=== PATIENT | female | born 1995 | race Caucasian/White ===

== ENCOUNTER 2017-04-15 10:56 | Emergency (ER) | payer BC ==
[~2017-04-15] VITALS: Ht 165.1 cm; Wt 85.2 kg
[2017-04-15 10:59] VITALS: Ht 165.1 cm; Wt 85.2 kg
[2017-04-15] MEDS ORDERED: ONDANSETRON INJ 2 MG/ML 2 ML VIAL IV STA (11:11)
[2017-04-15] MEDS ORDERED: KETOROLAC TROMETHAMINE 30 MG/ML VIAL IV STA (11:11)
[2017-04-15] MEDS ORDERED: OPTIRAY 320 IV PRN (11:30)
--- NOTE | 2017-04-15 11:38 | DIAGNOSTIC IMAGING REPORT ---
SINGLE VIEW CHEST CLINICAL HISTORY: Atypical chest pain. FINDINGS: An AP, portable, upright chest radiograph is compared to study dated 04/05/2016. The cardiomediastinal silhouette is unremarkable. A mediastinal clip is noted. Small calcified granulomas are suggested. The lungs and pleural spaces are otherwise clear. No pneumothorax is seen. The bony thorax is grossly intact. IMPRESSION: No active disease in the chest. Electronically signed by: Calixto Hanna M.D. 04/15/2017 11:36 AM Dictated Date/Time: 04/15/2017 11:36 AM
[2017-04-15 12:20] LABS: BASO % 0.9 %; COMPLETE YES; EOS % 5.2 %; HEMATOCRIT 39.8 % (37-47); IG% 0.2 %; LYMPH % 26.5 %; LYMPH ABS # 2.79 K/uL (1.2-3.4); MEAN CORPUSCULAR HEMOGLOBIN 31.1 pg (25-34); MEAN CORPUSCULAR HGB CONC 33.4 g/dl (32-36); MEAN PLATELET VOLUME 9.4 fL (7.4-10.4); MONO % 5.2 %; PLATELET COUNT 300 K/uL (130-400); RED BLOOD COUNT 4.28 M/uL (4.2-5.4); WHITE BLOOD COUNT 10.54 K/uL (4.8-10.8)
[2017-04-15 12:37] LABS: URINE APPEARANCE TURBID (CLEAR); URINE BILIRUBIN NEG (NEG); URINE COLOR YELLOW; URINE EPITHELIAL CELL AUTO >30 /lpf (0-5); URINE NITRITE NEG (NEG); URINE PH 8.5 (4.5-7.5); URINE SPECIFIC GRAVITY 1.017 (1.000-1.030); UROBILINOGEN NEG (NEG); ZZUR CULT IF INDIC CLEAN CATCH NO
[2017-04-15 12:40] LABS: MANUAL MICROSCOPIC REQUIRED? NO; REVIEW REQ? NO
[2017-04-15 12:42] LABS: ALT/SGPT 15 U/L (12-78); BLOOD UREA NITROGEN 9 mg/dl (7-18); BUN/CREATININE RATIO 13.6 (10-20); CARBON DIOXIDE 27 mmol/L (21-32); CHLORIDE 106 mmol/L (98-107); CREATININE 0.63 mg/dl (0.60-1.20); GLUCOSE 87 mg/dl (70-99); POTASSIUM 3.8 mmol/L (3.5-5.1); SODIUM 139 mmol/L (136-145)
[2017-04-15 12:47] LABS: ALKALINE PHOSPHATASE 82 U/L (45-117); AST/SGOT 8 U/L (15-37)
--- NOTE | 2017-04-15 13:43 | DIAGNOSTIC IMAGING REPORT ---
ABDOMEN AND PELVIS CT WITH IV CONTRAST CT DOSE: 524.46 mGy.cm HISTORY: Acute generalized upper abdominal pain diffuse upper abd pain TECHNIQUE: Multiaxial CT images of the abdomen and pelvis were performed following the use of intravenous contrast. A dose lowering technique was utilized adhering to the principles of ALARA. COMPARISON STUDY: CT abdomen and pelvis 01/29/2011. FINDINGS: The lung bases are generally clear. There is no pneumoperitoneum or pneumatosis identified. The imaged inferior cardiac chambers are unremarkable. The liver, gallbladder, spleen, pancreas and adrenal glands are within normal limits. There is an intermediate attenuating lesion adjacent to the lesser curvature of the stomach anterior to the pancreas in the region of the gastric hepatic ligament measuring 3.5 x 1.6 x 4.6 cm in transverse, AP and coronal caudal dimensions respectively nicely seen on image 98 series 3 which appears new from prior study. No associated inflammatory changes identified. No pancreatic ductal dilation. Kidneys, ureters and urinary bladder are within normal limits. Uterus and adnexa are also unremarkable. The abdominal aorta is normal in course and caliber. No bulky adenopathy. Small sliding-type hiatal hernia. There is no bowel obstruction or focal bowel wall thickening. The appendix appears normal. No ascites or inflammatory changes of the abdomen. Soft tissues are unremarkable. The bones appear intact. No significant degenerative changes. IMPRESSION: 1. No acute intra-abdominal or intrapelvic abnormality identified. Normal appendix. 2. Intermediate attenuating structure of the upper abdomen measuring up to 4.6 cm is noted adjacent to the lesser curvature of the stomach anterior to the pancreas within the expected region of the gastrohepatic ligament, new from prior study dated 01/29/2011. Differential considerations would include pancreatic pseudocyst or lymphangioma. Follow-up CT in 3 months recommended to further evaluate. Electronically signed by: Andrez Giles M.D. 04/15/2017 1:41 PM Dictated Date/Time: 04/15/2017 1:08 PM
[2017-04-15 14:27] VITALS: BP 108/70; PULSE 59; TEMP 37.1; O2SAT 92
--- NOTE | 2017-04-15 17:11 | EMERGENCY ROOM VISIT NOTE ---
History Report prepared by Cecy: Melyssa Martin Under the Supervision of: Dr. Agusto Yates D.O. First contact with patient: 11:03 Chief Complaint: ABDOMINAL PAIN Stated Complaint: STOMACH PAIN History of Present Illness The patient is a 21 year old female who presents to the Emergency Room with complaints of intermittent abdominal pain for the last three weeks [employer]. The patient states that initially she felt like she was having contractions. She reports waxing and waning pain. For the past 3 days her pain has been constant. She states that it is located periumbilically. She is nauseous and has chest pain with breathing. She notes that lying in the position provides some relief of her pain, while sitting up exacerbates her pain. She does not have a history of PE. She notes that eating or drinking does not change the pain. She denies hemoptysis, vomiting, shortness of breath, fever, diarrhea, abnormal vaginal bleeding or discharge, hematochezia, melena, and dysuria. She denies any abdominal surgeries and any other medical problems. Her last menstrual period was 2 weeks ago. She reports that it lasted longer than usual and arrived earlier than expected. The patient has the Nexplanon implant. Her last bowel movement was yesterday afternoon and was normal. Patient denies swelling of calves, recent trips, history of immobilization or recent surgery, prior history of DVT, hemoptysis, history of malignancy, history of smoking, or control/estrogen use. Patient denies diabetes, hypertension, hyperlipidemia, CAD , history of sudden at a young age, and smoking. Source of History: patient Onset: 3 weeks ago Position: abdomen Quality: other (sanjiv) Timing: intermittent, worsening Modifying Factors (Worsening): other (sitting upright) Modifying Factors (Relieving): other ( position) Associated Symptoms: + chest pain, + nausea, No fevers, No cough (coughing up blood), No SOB, No vomiting, No melena, No hematochezia, No diarrhea, No urinary symptoms Note: Pt denies hemoptysis and abnormal vaginal bleeding or discharge. Review of Systems See HPI for pertinent positives & negatives. A total of 10 systems reviewed and were otherwise negative. Past Medical & Surgical Medical Problems: (1) Abdominal pain (2) Abdominal pain (3) Bronchitis (4) Closed head injury (5) Hand laceration (6) Neck strain (7) Otitis externa (8) Pyelonephritis (9) Pyelonephritis (10) Small bowel obstruction, partial (11) Urinary tract infection Surgical Problems: (1) History of colonoscopy (2) History of endoscopy Family History Gallbladder disease Social History Smoking Status: Former Smoker Alcohol Use: occasionally Drug Use: none Marital Status: in relationship Housing Status: lives with family Occupation Status: employed Current/Historical Medications No Active Prescriptions or Reported Meds Allergies Coded Allergies: Clarithromycin (Unverified Allergy, Mild, UNKNOWN, 04/15/17) Physical Exam Vital Signs Date Time Temp Pulse Resp B/P (MAP) Pulse Ox O2 Delivery O2 Flow Rate FiO2 04/15/17 14:27 37.1 59 18 108/70 92 Room Air 04/15/17 13:18 36.9 56 18 108/59 100 Room Air 04/15/17 12:05 37.0 57 18 107/75 100 Room Air 04/15/17 10:59 36.5 86 18 120/67 97 Room Air Physical Exam GENERAL: Sitting up in bed, in moderate distress holding abdomen. EYE EXAM: normal conjunctiva. OROPHARYNX: no exudate, no erythema, lips, buccal mucosa, and tongue normal and mucous membranes are moist NECK: supple, no nuchal rigidity, no adenopathy, non-tender LUNGS: Clear to auscultation. Normal chest wall mechanics HEART: no murmurs, S1 normal and S2 normal ABDOMEN: Tender to palpation around umbilicus. BACK: Back is symmetrical on inspection and there is no deformity, no midline tenderness, no CVA tenderness. SKIN: no rashes and no bruising UPPER EXTREMITIES: upper extremities are grossly normal. LOWER EXTREMITIES: No pitting edema. NEURO EXAM: Normal sensorium, cranial nerves II-XII grossly intact, normal speech, no gross weakness of arms, no gross weakness of legs. Medical Decision & Procedures ER Provider Diagnostic Interpretation: Radiology results as stated below per my review and the radiologist's interpretation: SINGLE VIEW CHEST CLINICAL HISTORY: Atypical chest pain. FINDINGS: An AP, portable, upright chest radiograph is compared to study dated 04/05/2016. The cardiomediastinal silhouette is unremarkable. A mediastinal clip is noted. Small calcified granulomas are suggested. The lungs and pleural spaces are otherwise clear. No pneumothorax is seen. The bony thorax is grossly intact. IMPRESSION: No active disease in the chest. Electronically signed by: Calixto Hanna M.D. 04/15/2017 11:36 AM Dictated Date/Time: 04/15/2017 11:36 AM ABDOMEN AND PELVIS CT WITH IV CONTRAST CT DOSE: 524.46 mGy.cm HISTORY: Acute generalized upper abdominal pain diffuse upper abd pain TECHNIQUE: Multiaxial CT images of the abdomen and pelvis were performed following the use of intravenous contrast. A dose lowering technique was utilized adhering to the principles of ALARA. COMPARISON STUDY: CT abdomen and pelvis 01/29/2011. FINDINGS: The lung bases are generally clear. There is no pneumoperitoneum or pneumatosis identified. The imaged inferior cardiac chambers are unremarkable. The liver, gallbladder, spleen, pancreas and adrenal glands are within normal limits. There is an intermediate attenuating lesion adjacent to the lesser curvature of the stomach anterior to the pancreas in the region of the gastric hepatic ligament measuring 3.5 x 1.6 x 4.6 cm in transverse, AP and coronal caudal dimensions respectively nicely seen on image 98 series 3 which appears new from prior study. No associated inflammatory changes identified. No pancreatic ductal dilation. Kidneys, ureters and urinary bladder are within normal limits. Uterus and adnexa are also unremarkable. The abdominal aorta is normal in course and caliber. No bulky adenopathy. Small sliding-type hiatal hernia. There is no bowel obstruction or focal bowel wall thickening. The appendix appears normal. No ascites or inflammatory changes of the abdomen. Soft tissues are unremarkable. The bones appear intact. No significant degenerative changes. IMPRESSION: 1. No acute intra-abdominal or intrapelvic abnormality identified. Normal appendix. 2. Intermediate attenuating structure of the upper abdomen measuring up to 4.6 cm is noted adjacent to the lesser curvature of the stomach anterior to the pancreas within the expected region of the gastrohepatic ligament, new from prior study dated 01/29/2011. Differential considerations would include pancreatic pseudocyst or lymphangioma. Follow-up CT in 3 months recommended to further evaluate. Electronically signed by: Andrez Giles M.D. 04/15/2017 1:41 PM Dictated Date/Time: 04/15/2017 1:08 PM Laboratory Results 04/15/17 12:00 Red Blood Count 4.28, Mean Corpuscular Volume 93.0, Mean Corpuscular Hemoglobin 31.1, Mean Corpuscular Hemoglobin Concent 33.4, Mean Platelet Volume 9.4, Neutrophils (%) (Auto) 62.0, Lymphocytes (%) (Auto) 26.5, Monocytes (%) (Auto) 5.2, Eosinophils (%) (Auto) 5.2, Basophils (%) (Auto) 0.9, Neutrophils # (Auto) 6.53, Lymphocytes # (Auto) 2.79, Monocytes # (Auto) 0.55, Eosinophils # (Auto) 0.55, Basophils # (Auto) 0.10 04/15/17 12:00 Test 04/15/17 12:00 04/15/17 12:18 White Blood Count 10.54 K/uL (4.8-10.8) Red Blood Count 4.28 M/uL (4.2-5.4) Hemoglobin 13.3 g/dL (12.0-16.0) Hematocrit 39.8 % (37-47) Mean Corpuscular Volume 93.0 fL (80-100) Mean Corpuscular Hemoglobin 31.1 pg (25-34) Mean Corpuscular Hemoglobin Concent 33.4 g/dl (32-36) Platelet Count 300 K/uL (130-400) Mean Platelet Volume 9.4 fL (7.4-10.4) Neutrophils (%) (Auto) 62.0 % Lymphocytes (%) (Auto) 26.5 % Monocytes (%) (Auto) 5.2 % Eosinophils (%) (Auto) 5.2 % Basophils (%) (Auto) 0.9 % Neutrophils # (Auto) 6.53 K/uL (1.4-6.5) Lymphocytes # (Auto) 2.79 K/uL (1.2-3.4) Monocytes # (Auto) 0.55 K/uL (0.11-0.59) Eosinophils # (Auto) 0.55 K/uL (0-0.5) Basophils # (Auto) 0.10 K/uL (0-0.2) RDW Standard Deviation 50.0 fL (36.4-46.3) RDW Coefficient of Variation 14.8 % (11.5-14.5) Immature Granulocyte % (Auto) 0.2 % Immature Granulocyte # (Auto) 0.02 K/uL (0.00-0.02) D-Dimer < 190 ug/L FEU (0-500) Anion Gap 6.0 mmol/L (3-11) Est Creatinine Clear Calc Drug Dose 149.7 ml/min Estimated GFR () 146.5 Estimated GFR (Non- 126.4 BUN/Creatinine Ratio 13.6 (10-20) Calcium Level 9.0 mg/dl (8.5-10.1) Total Bilirubin 0.4 mg/dl (0.2-1) Direct Bilirubin 0.2 mg/dl (0-0.2) Aspartate Amino Transf (AST/SGOT) 8 U/L (15-37) Alanine Aminotransferase (ALT/SGPT) 15 U/L (12-78) Alkaline Phosphatase 82 U/L (45-117) Troponin I < 0.015 ng/ml (0-0.045) Total Protein 6.9 gm/dl (6.4-8.2) Albumin 3.7 gm/dl (3.4-5.0) Lipase 80 U/L (73-393) Urine Color YELLOW Urine Appearance TURBID (CLEAR) Urine pH 8.5 (4.5-7.5) Urine Specific [place] 1.017 (1.000-1.030) Urine Protein NEG (NEG) Urine Glucose (UA) NEG (NEG) Urine Ketones NEG (NEG) Urine Occult Blood NEG (NEG) Urine Nitrite NEG (NEG) Urine Bilirubin NEG (NEG) Urine Urobilinogen NEG (NEG) Urine Leukocyte Esterase SMALL (NEG) Urine WBC (Auto) 5-10 /hpf (0-5) Urine RBC (Auto) 10-30 /hpf (0-4) Urine Hyaline Casts (Auto) 1-5 /lpf (0-5) Urine Epithelial Cells (Auto) >30 /lpf (0-5) Urine Bacteria (Auto) NEG (NEG) Urine Test NEG (NEG) Laboratory results per my review. Medications Administered Medications (Trade) Dose Ordered Sig/Mary Route Start Time Stop Time Status Last Admin Dose Admin Ketorolac Tromethamine (Toradol Inj) 30 mg NOW STAT IV 04/15/17 11:11 04/15/17 11:15 DC 04/15/17 12:01 30 MG Ondansetron HCl (Zofran Inj) 4 mg NOW STAT IV 04/15/17 11:11 04/15/17 11:15 DC 04/15/17 12:01 4 MG ECG Indication: abdominal pain Rate (beats per minute): 57 Rhythm: sinus bradycardia Findings: no ectopy (normal axis), other (interventricular conduction delay with J-point elevation) ED Course ED COURSE: Vital signs were reviewed and showed normal vitals. The patients medical record was reviewed The above diagnostic studies were performed and reviewed. ED treatments and interventions as stated above. 1103: The patient was evaluated in room C5. A complete history and physical examination was performed. 1111: Ordered Zofran 4 mg IV, Toradol 30 mg IV 1210 I reassessed the patient at this time. She has taken her medications and is feeling better and resting comfortably. 1408: I spoke with Dr. Gibbs of GI. We discussed the patient's case. He will follow up with the patient as an outpatient and will arrange outpatient ultrasound follow-up. 1409: I reassessed the patient at this time and updated her on the results. 1412: Upon reevaluation, the patient is doing well and resting comfortably. I discussed my findings with the patient and she understands and agrees with the treatment plan. Based on the patients age, coexisting illnesses, exam and lab findings the decision to treat as an outpatient was made. The patient remained stable while under my care. The patient appeared well at the time of discharge. Medical Decision Differential diagnoses includes but is not limited to gastritis, peptic ulcer disease, GERD, gallbladder disease, pancreatitis, small bowel obstruction, acute coronary syndrome, pericarditis, ischemic bowel, irritable bowel disease, irritable bowel syndrome, appendicitis, diverticulitis, malignancy, hernia, urinary tract infection, torsion, [/ectopic (if female)], perforation, trauma, infectious. Patient is a 21-year-old female who presents to ER with periumbilical abdominal pain associated with nausea. This is present for the past 3 days. Last menstrual period was last Friday. Patient has no other complaints. No vaginal bleeding or vaginal discharge. CBC all BMP, LFTs, bilirubin and troponin were negative. Lipase normal. UA was contaminated with multiple epithelial cells. was negative. D-dimer was negative. CT shows small mass around the pancreas. Question pancreatic cyst but uncertain. Discussed with GI. They will follow her up as an outpatient. Patient was updated in regards to her findings. Discussed with Pt concerning signs and symptoms to watch out for. Pt was instructed to follow up with their PCP and discussed with the patient their option to return to the ED at anytime for persistent or worsening symptoms. The appropriate anticipatory guidance and out-patient management, including indications for return to the emergency department, were explained at length to the patient and understood. Medication Reconcilliation Current Medication List: was personally reviewed by me Blood Pressure Screening Patient's blood pressure: Normal blood pressure Consults Time Called: 1405 Consulting Physician: Dr. Gibbs GI Returned Call: [address] Gibbs of GI. We discussed the patient's case. He will follow up with the patient as an outpatient and will arrange outpatient ultrasound follow-up. Impression Primary Impression: Abdominal pain Additional Impression: Pancreatic mass Scribe Attestation The scribe's documentation has been prepared under my direction and personally reviewed by me in its entirety. I confirm that the note above accurately reflects all work, treatment, procedures, and medical decision making performed by me. Departure Information Dispostion Home / Self-Care Prescriptions No Active Prescriptions or Reported Meds Referrals Rocael Sargetn M.D.([facility]) (PCP) Forms HOME CARE DOCUMENTATION FORM, IMPORTANT VISIT INFORMATION Patient Instructions Abdominal Pain - [facility], [facility] Additional Instructions Please follow up with your primary care doctor with in the next 24 hours. Any worsening of your symptoms, please return to the ED immediately. This includes any fevers greater than 100.4, worsening pain, chest pain, shortness breath, persistent nausea, vomiting, unable to eat or drink, or any other concerning signs or symptoms from your standpoint. Your found to have on CT a 4.6 cm attenuating structure around the pancreas. This must be followed up by GI. Please call them when you leave here to set up an appointment. Their numbers listed below. Please take Tylenol or Motrin as needed for pain. Problem Qualifiers Primary Impression: Abdominal pain Abdominal location: unspecified location Qualified Codes: R10.9 - Unspecified abdominal pain
== END 2017-04-15 14:40 | disposition home or self-care (01) ==
LOC: C.EDC 11:18
DX: R10.9 Unspecified abdominal pain (principal); K86.9 Disease of pancreas, unspecified; Z86.711 Personal history of pulmonary embolism; Z87.828 Personal history of other (healed) physical injury and trauma; Z87.440 Personal history of urinary (tract) infections; Z87.891 Personal history of nicotine dependence; Z98.890 Other specified postprocedural states

== ENCOUNTER 2017-04-25 23:36 | Emergency (ER) | payer BC ==
[~2017-04-25] VITALS: Ht 165.1 cm; Wt 81.3 kg
[2017-04-25 23:40] VITALS: TEMP 36.8; Ht 165.1 cm; Wt 81.3 kg
[2017-04-25] MEDS ORDERED: MoRPHine SULFATE 4 MG/ML 1 ML CARP\\VIAL IV STA (23:52)
[2017-04-25] MEDS ORDERED: ONDANSETRON INJ 2 MG/ML 2 ML VIAL IV STA (23:52)
[2017-04-26 00:27] VITALS: O2SAT 98
[2017-04-26 00:34] LABS: BASO % 0.5 %; BASO ABS # 0.07 K/uL (0-0.2); COMPLETE YES; EOS % 3.6 %; HEMATOCRIT 40.1 % (37-47); IG% 0.2 %; LYMPH % 20.9 %; LYMPH ABS # 2.76 K/uL (1.2-3.4); MEAN CELL VOLUME 90.3 fL (80-100); MEAN CORPUSCULAR HEMOGLOBIN 31.5 pg (25-34); MEAN CORPUSCULAR HGB CONC 34.9 g/dl (32-36); MEAN PLATELET VOLUME 9.5 fL (7.4-10.4); MONO % 11.9 %; NEUT % 62.9 %; PLATELET COUNT 311 K/uL (130-400); RED BLOOD COUNT 4.44 M/uL (4.2-5.4); WHITE BLOOD COUNT 13.23 K/uL (4.8-10.8)
[2017-04-26 00:43] LABS: BUN/CREATININE RATIO 13.4 (10-20); CALCIUM 8.8 mg/dl (8.5-10.1); CREATININE 0.71 mg/dl (0.60-1.20); POTASSIUM 3.6 mmol/L (3.5-5.1)
[2017-04-26 00:56] LABS: PREG INTERNAL NEGATIVE QC NEG CLEAR BACKGROUND; PREG INTERNAL POSITIVE QC POS CONTROL LINE
[2017-04-26] MEDS ORDERED: METOCLOPRAMIDE HCL INJ 5 MG/ML 2 ML VIAL IV STA (01:04)
[2017-04-26] MEDS ORDERED: KETOROLAC TROMETHAMINE 30 MG/ML VIAL IV STA (01:04)
[2017-04-26] MEDS ORDERED: METO-157 PO (02:00)
[2017-04-26 02:03] VITALS: BP 126/64; PULSE 80; O2SAT 95
--- NOTE | 2017-04-26 02:03 | EMERGENCY ROOM VISIT NOTE ---
History First contact with patient: 23:48 Chief Complaint: ABDOMINAL PAIN Stated Complaint: CYST ON PANCREAS Nursing Triage Summary: pt c/o right sided abd pain. mother states pt was dx with cyst on pancreas by CT scan when she was here Friday. pt states pain has been continuous and worse tonight. denies vomiting/diarrhea. states she hasn't eaten or drank. pt associates nausea. pt is tearful and moaning, restless, throwing self around in litter. pt rates pain 9/10. mother is at bedside. History of Present Illness The patient is a 22 year old female who presents to the Emergency Room with complaints of nausea and right upper quadrant pain for the past 4 weeks that comes and goes in severity. 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 Matute. Patient comes in now as the pain has increased. Pain currently 8 out of 10. Nothing makes it better or worse. It does not radiate. Patient denies chest pain, dyspnea, fever, chills , back pain, diarrhea, urinary symptoms. No injury to the area. Review of Systems See HPI for pertinent positives & negatives. A total of 10 systems reviewed and were otherwise negative. Past Medical/Surgical History Medical Problems: (1) Abdominal pain (2) Abdominal pain (3) Bronchitis (4) Closed head injury (5) Hand laceration (6) Neck strain (7) Otitis externa (8) Pyelonephritis (9) Pyelonephritis (10) Small bowel obstruction, partial (11) Urinary tract infection Surgical Problems: (1) History of colonoscopy (2) History of endoscopy Family History Gallbladder disease Social History Smoking Status: Never Smoker Alcohol Use: occasionally Drug Use: none Marital Status: in relationship Housing Status: lives with family Occupation Status: employed Current/Historical Medications No Active Prescriptions or Reported Meds Physical Exam Vital Signs Date Time Temp Pulse Resp B/P (MAP) Pulse Ox O2 Delivery O2 Flow Rate FiO2 04/26/17 00:27 98 Room Air 04/26/17 00:27 80 18 99/58 98 Room Air 04/25/17 23:40 36.8 113 20 116/59 98 Room Air Physical Exam VITALS: Vitals are noted on the nurse's note and reviewed by myself. Vital signs stable. GENERAL: White female yelling and screaming, in no acute distress, nondiaphoretic, well-developed well-nourished. SKIN: The skin was without rashes, erythema, edema, or bruising. There is no tenting of the skin. Capillary reflex less than 2 seconds. HEAD: Normocephalic atraumatic. EARS: External auditory canals clear, tympanic membranes pearly sainz without erythema or effusion bilaterally. EYES: Pupils equal round and reactive to light and accommodation. Conjunctivae without injection, sclerae without icterus. Extraocular movements intact. NOSE: Patent, turbinates without inflammation or discharge. MOUTH: Mucous membranes moist. Pharynx without erythema or exudate. Uvula midline. Airway patent. Tongue does not deviate. NECK: Supple without nuchal rigidity. No lymphadenopathy. No thyromegaly. Cervical spine is nontender. No JVD. HEART: Regular rate and rhythm without murmurs gallops or rubs. LUNGS: Clear to auscultation bilaterally without wheezes, rales or rhonchi. No dullness to percussion. No retractions or accessory muscle use. ABDOMEN: Positive bowel sounds x 4. Normal tympanic percussion. Soft, minimally tender right upper quadrant, no CVA tenderness, without masses or organomegaly. Dodson sign negative. No guarding or rebound tenderness. MUSCULOSKELETAL: No muscle atrophy, erythema, or edema noted. NEURO: Patient was alert and oriented to person place and time. Normal sensation to light and sharp touch. No focal neurological deficits. Medical Decision & Procedures Laboratory Results 04/26/17 00:20 Red Blood Count 4.44, Mean Corpuscular Volume 90.3, Mean Corpuscular Hemoglobin 31.5, Mean Corpuscular Hemoglobin Concent 34.9, Mean Platelet Volume 9.5, Neutrophils (%) (Auto) 62.9, Lymphocytes (%) (Auto) 20.9, Monocytes (%) (Auto) 11.9, Eosinophils (%) (Auto) 3.6, Basophils (%) (Auto) 0.5, Neutrophils # (Auto ) 8.32, Lymphocytes # (Auto) 2.76, Monocytes # (Auto) 1.58, Eosinophils # (Auto ) 0.47, Basophils # (Auto) 0.07 04/26/17 00:20 Test 04/26/17 00:20 White Blood Count 13.23 K/uL (4.8-10.8) Red Blood Count 4.44 M/uL (4.2-5.4) Hemoglobin 14.0 g/dL (12.0-16.0) Hematocrit 40.1 % (37-47) Mean Corpuscular Volume 90.3 fL (80-100) Mean Corpuscular Hemoglobin 31.5 pg (25-34) Mean Corpuscular Hemoglobin Concent 34.9 g/dl (32-36) Platelet Count 311 K/uL (130-400) Mean Platelet Volume 9.5 fL (7.4-10.4) Neutrophils (%) (Auto) 62.9 % Lymphocytes (%) (Auto) 20.9 % Monocytes (%) (Auto) 11.9 % Eosinophils (%) (Auto) 3.6 % Basophils (%) (Auto) 0.5 % Neutrophils # (Auto) 8.32 K/uL (1.4-6.5) Lymphocytes # (Auto) 2.76 K/uL (1.2-3.4) Monocytes # (Auto) 1.58 K/uL (0.11-0.59) Eosinophils # (Auto) 0.47 K/uL (0-0.5) Basophils # (Auto) 0.07 K/uL (0-0.2) RDW Standard Deviation 46.9 fL (36.4-46.3) RDW Coefficient of Variation 14.1 % (11.5-14.5) Immature Granulocyte % (Auto) 0.2 % Immature Granulocyte # (Auto) 0.03 K/uL (0.00-0.02) Anion Gap 6.0 mmol/L (3-11) Est Creatinine Clear Calc Drug Dose 128.7 ml/min Estimated GFR () 138.2 Estimated GFR (Non- 119.2 BUN/Creatinine Ratio 13.4 (10-20) Calcium Level 8.8 mg/dl (8.5-10.1) Total Bilirubin 0.7 mg/dl (0.2-1) Direct Bilirubin 0.2 mg/dl (0-0.2) Aspartate Amino Transf (AST/SGOT) 6 U/L (15-37) Alanine Aminotransferase (ALT/SGPT) 13 U/L (12-78) Alkaline Phosphatase 86 U/L (45-117) Total Protein 7.6 gm/dl (6.4-8.2) Albumin 3.8 gm/dl (3.4-5.0) Lipase 65 U/L (73-393) Human Chorionic Gonadotropin, Qual NEG (NEG) Medications Administered Medications (Trade) Dose Ordered Sig/Mary Route Start Time Stop Time Status Last Admin Dose Admin Morphine Sulfate (MoRPHine SULFATE INJ) 4 mg NOW STAT IV 04/25/17 23:52 04/25/17 23:54 DC 04/26/17 00:24 4 MG Ondansetron HCl (Zofran Inj) 4 mg NOW STAT IV 04/25/17 23:52 04/25/17 23:54 DC 04/26/17 00:23 4 MG Ketorolac Tromethamine (Toradol Inj) 30 mg NOW STAT IV 04/26/17 01:04 04/26/17 01:05 DC 04/26/17 01:14 30 MG Metoclopramide HCl (Reglan Inj) 10 mg NOW STAT IV 04/26/17 01:04 04/26/17 01:05 DC 04/26/17 01:12 10 MG ED Course Prior records/ancillary studies reviewed. Triage Nursing notes reviewed. Additional history obtained from family The patient's history was concerning for abdominal pain. Differential diagnosis: Etiologies such as appendicitis, diverticulitis, PUD, biliary pathology, UTI, pancreatitis, obstruction, mesenteric ischemia, aortic pathology, infections, inflammatory bowel disease, renal colic, as well as others were entertained. Physical examination findings: As above. ER treatment provided: Morphine, Toradol, Zofran, Reglan On reassessment the patient felt better. Diagnostics interpreted by me: The labs revealed mild leukocytosis. Negative hCG Imaging studies: Ultrasound negative for cholecystitis per radiology Exam and history seem consistent with ongoing right upper quadrant pain with unclear etiology. Patient has a scheduled biopsy in 2 weeks. Her pain is now controlled. Patient states she will be back as she knows the pain will return. She was strongly encouraged to see her GI doctor for this. Patient has Bentyl prescribed by her GI doctor. She is advised to take this. She is given a short course of Reglan as she states this did help with her nausea. Patient did not have acute abdomen on exam. She is well-appearing. She is nontoxic. She is discharged home in stable condition and ambulated without difficulties. She is advised to follow-up with family care and GI this week or here in the ER sooner for abdominal pain, fevers, vomiting, worsening signs or symptoms or as needed. By the evaluation outlined above emergent etiologies such as appendicitis, diverticulitis, PUD, biliary pathology, UTI, obstruction, mesenteric ischemia, aortic pathology, infections, inflammatory bowel disease, renal colic, as well as others were deemed relatively unlikely. The pt informed about the findings as listed above. All questions were answered and pleased with the treatment. Return instructions were outlined and the patient was discharged in stable condition. Outpatient prescription management: reglan Referral: The patient was referred back to their primary care physician/GI for follow-up in 2 to 3 days for a recheck of the current condition. Case reviewed with my Attending Medical Decision As above Medication Reconcilliation Current Medication List: was personally reviewed by me Blood Pressure Screening Patient's blood pressure: Normal blood pressure Impression Primary Impression: Right upper quadrant abdominal pain Departure Information Dispostion Home / Self-Care Condition GOOD Prescriptions No Active Prescriptions or Reported Meds Referrals Rocael Sargent M.D. ([facility]) (PCP) Patient Instructions My [facility]
--- NOTE | 2017-04-26 08:04 | DIAGNOSTIC IMAGING REPORT ---
ABDOMINAL ULTRASOUND, RIGHT UPPER QUADRANT HISTORY: Epigastric pain. Known pancreatic cyst. COMPARISON: CT of the abdomen and pelvis April 15, 2017. FINDINGS: The liver morphology is normal. No hepatic lesions are identified. The pancreas was obscured by overlying bowel gas. Gallbladder is normal. There are no gallstones. There is no right hydronephrosis. No biliary ductal dilatation is present. IMPRESSION: 1. No gallstones or biliary ductal dilatation. 2. Pancreas obscured by overlying bowel gas. Electronically signed by: Ananda Almaguer M.D. 04/26/2017 8:02 AM Dictated Date/Time: 04/26/2017 7:49 AM
== END 2017-04-26 02:03 | disposition home or self-care (01) ==
LOC: C.EDB 23:37 → C.EDA 04-26 02:03
DX: R10.11 Right upper quadrant pain (principal); Z87.440 Personal history of urinary (tract) infections; Z83.79 Family history of other diseases of the digestive system

== ENCOUNTER 2017-05-09 07:39 | Day surgery (SDC) | payer BC ==
[2017-05-01 13:32] VITALS: BMI 28.0
[~2017-05-09] VITALS: Ht 165.1 cm; Wt 77.3 kg
[~2017-05-09 07:39] MED LIST: DICY10CA55 PO; ETON1IMP2; LACTATED RINGER'S 1000ML 1,000 ML IV SCH; METO-157 PO
[2017-05-09 08:25] VITALS: BP 108/51; PULSE 74; TEMP 36.7; O2SAT 97; Ht 165.1 cm; Wt 77.3 kg
[2017-05-09] MEDS ORDERED: SODIUM CHLORIDE 0.9% 500ML 500 ML IV SCH (09:53)
--- NOTE | 2017-05-09 10:05 | Endo History and Physical ---
History & Physical Date of Service: May 09, 2017. Chief Complaint: abdominal pain/ abnormal CT Referring Physician: Dr Matute History of Present Illness abd pain, no wt loss; no fever chills; decreased appetite; nausea Past Surgical History Hx Cardiac Surgery: Yes (HEART SURGERY TO REPAIR PDA) Hx Abdominal Surgery: No Hx Post-Op Nausea and Vomiting: Yes Hx Cancer Surgery: No Hx Thoracic Surgery: No Hx Orthopedic: No Hx Urinary Tract Surgery: No Social History Smoking Status: Never Smoker Hx Substance Use: No Hx Alcohol Use: Yes (2 drinks a week) Allergies Coded Allergies: Clarithromycin (Unverified Allergy, Mild, UNKNOWN, 05/09/17) Current Medications Reported Home Medications Medications Dose Route/Sig Max Daily Dose Days Date Category Dose Instructions Nexplanon (Etonogestrel) 68 Mg Imp 1 Dose UD 05/01/17 Reported PLACED IN 2014 Bentyl (Dicyclomine Hcl) 10 Mg Cap 10 Mg PO BID PRN 05/01/17 Reported Reglan (Metoclopramide HCl) 10 Mg Tab 10 Mg PO Q6H 04/26/17 Rx NAUSEA Vital Signs Weight (Kilograms): 77.27 Height (Feet): 5 Height (Inches): 5 Date Time Temp Pulse Resp B/P (MAP) Pulse Ox O2 Delivery O2 Flow Rate FiO2 05/09/17 08:25 36.7 74 18 108/51 (70) 97 Room Air Physical Exam General Appearance: WD/WN, no apparent distress Respiratory/Chest: Auscultation: breath sounds normal Cardiovascular: Heart Auscultation: RRR Abdomen: Bowel Sounds: normal Inspection & Palpation: soft, non-distended, no tenderness, guarding & rebound Assessment and Plan EUS with possible FNA
[2017-05-09] MEDS ORDERED: MIDAZOLAM HCL 1 MG/ML 2ML VIAL ONE (10:12)
[2017-05-09] MEDS ORDERED: FENTANYL CITRATE INJ 50 MCG/1 ML 2 ML VIAL ONE (10:12)
[2017-05-09] MEDS ORDERED: ATROPINE SULFATE 0.1 MG/ML 5ML SYR IV PRN (10:30)
[2017-05-09] MEDS ORDERED: PROMETHAZINE HCL INJ 12.5 MG in SODIUM CHLORIDE 0.9% 50ML 50 ML IV PRN (10:30)
[2017-05-09] MEDS ORDERED: FENTANYL CITRATE INJ 50 MCG/1 ML 2 ML VIAL IV PRN (10:30)
[2017-05-09] MEDS ORDERED: ONDANSETRON INJ 2 MG/ML 2 ML VIAL IV PRN (10:30)
[2017-05-09] MEDS ORDERED: KETOROLAC TROMETHAMINE 30 MG/ML VIAL IV. PRN (10:30)
[2017-05-09] MEDS ORDERED: ONDANSETRON INJ 2 MG/ML 2 ML VIAL ONE (11:24)
[2017-05-09] MEDS ORDERED: PROPOFOL IV EMULSION 10 MG/ML 20 ML VIAL IV ONE (11:24)
[2017-05-09] MEDS ORDERED: LIDOCAINE HCL 2% 2 ML VIAL (20MG/ML) ONE (11:24)
[2017-05-09] MEDS ORDERED: METOCLOPRAMIDE HCL INJ 5 MG/ML 2 ML VIAL ONE (11:24)
[2017-05-09] MEDS ORDERED: ROCURONIUM BROMIDE 10 MG/ML 5 ML VIAL IV ONE (11:24)
[2017-05-09] MEDS ORDERED: GLYCOPYRROLATE INJ 0.2 MG/ML VIAL ONE (11:24)
--- NOTE | 2017-05-09 11:40 | Discharge Instructions ---
Endoscopy Patient Instructions Date / Procedure(s) Performed May 09, 2017. Other Allergy Information Coded Allergies: Clarithromycin (Unverified Allergy, Mild, UNKNOWN, 05/09/17) Discharge Date / Findings May 09, 2017. normal EUS- no soft tissue mass identified Medication Instructions Restart Stopped Medication(s): Reported Home Medications Medications Dose Route/Sig Max Daily Dose Days Date Category Dose Instructions Nexplanon (Etonogestrel) 68 Mg Imp 1 Dose UD 05/01/17 Reported PLACED IN 2014 Bentyl (Dicyclomine Hcl) 10 Mg Cap 10 Mg PO BID PRN 05/01/17 Reported Reglan (Metoclopramide HCl) 10 Mg Tab 10 Mg PO Q6H 04/26/17 Rx NAUSEA Reported Home Medications Medications Dose Route/Sig Max Daily Dose Days Date Category Dose Instructions Nexplanon (Etonogestrel) 68 Mg Imp 1 Dose UD 05/01/17 Reported PLACED IN 2014 Bentyl (Dicyclomine Hcl) 10 Mg Cap 10 Mg PO BID PRN 05/01/17 Reported Reglan (Metoclopramide HCl) 10 Mg Tab 10 Mg PO Q6H 04/26/17 Rx NAUSEA Provider Instructions Activity Restrictions - No exercising or heavy lifting for 24 hours. - Do not drink alcohol the day of the procedure. - Do not drive a car or operate machinery until the day after the procedure. - Do not make any important decisions or sign important papers in 24 hours after the procedure. Following Day: - Return to full activity which may include returning to work/school. Diet Start your diet with liquids and light foods (jello, soup, juice, toast). Then eat your usual diet if not nauseated. Treatment For Common After Affects For mild abdominal pain, bloating, or excessive gas: - Rest - Eat lightly - Lie on right side Follow-Up Information Follow-up with as scheduled Anesthesia Information What You Should Know You have had a procedure that required some medicine to reduce anxiety and discomfort. This treatment is called moderate sedation. After receiving the treatment, you may be sleepy, but you will be able to breathe on your own. The effects of the treatment may last for several hours. Follow these instructions along with Activity/Diet recommendations noted above: * Do NOT do anything where dizziness or clumsiness would be dangerous. * Rest quietly at home today, then you can be up and about tomorrow. * Have a responsible person stay with you the rest of today. * You may have had an I.V. today. If so, you may take the dressing off later today. Recommendations Call your doctor if: * Trouble breathing * Continuous vomiting for more than 24 hours * Temperature above 101 degrees * Severe abdominal pain or bloating * Pain not relieved by pain medicine ordered * There is increased drainage or redness from any incision * A large amount of rectal bleeding greater than 2-3 tablespoons. (If you had a polyp/s removed or have hemorrhoids, a small amount of blood - from the rectum is to be expected.) * You have any unanswered questions or concerns. IN THE EVENT OF A SERIOUS EMERGENCY, GO TO THE NEAREST EMERGENCY ROOM Your discharge instructions were prepared by provider Gianulca Haas. Patient Instructions Signature Page Chery Cruz Patient (or Guardian) Signature/Date: I have read and understand the instructions given to me by my caregivers. Caregiver/RN/Doctor Signature/Date: The above-named patient and/or guardian has received patient instructions on this date. + Original Patient Signature Page (only) stays with chart. Please make copy for patient.
--- NOTE | 2017-05-09 12:11 | Anesthesiology Progress Note ---
Anesthesia Post Op Note Date & Time May 09, 2017 at 12:11 Vital Signs Pain Intensity: 2 Vital Signs Past 12 Hours Date Time Temp Pulse Resp B/P (MAP) Pulse Ox O2 Delivery O2 Flow Rate FiO2 05/09/17 12:05 81 16 114/61 98 Room Air 05/09/17 11:55 86 16 115/62 98 Room Air 05/09/17 11:45 36.4 113 16 122/79 100 Room Air 05/09/17 08:25 36.7 74 18 108/51 (70) 97 Room Air Notes Mental Status: alert / awake / arousable, participated in evaluation Pt Amnestic to Procedure: Yes Nausea / Vomiting: adequately controlled Pain: adequately controlled Airway Patency, RR, SpO2: stable & adequate BP & HR: stable & adequate Hydration State: stable & adequate Anesthetic Complications: no major complications apparent
--- NOTE | 2017-05-09 12:17 | GI REPORT ---
Procedure Date: 05/09/2017 10:37 AM Procedure: Upper EUS Indications: Suspected mass in stomach on CT scan Medicines: General Anesthesia Complications: No immediate complications. Estimated blood loss: None. Estimated Blood Loss: Estimated blood loss: none. Procedure: Pre-Anesthesia Assessment: - Prior to the procedure, a History and Physical was performed, and patient medications and allergies were reviewed. The patient's tolerance of previous anesthesia was also reviewed. The risks and benefits of the procedure and the sedation options and risks were discussed with the patient. All questions were answered, and informed consent was obtained. Prior Anticoagulants: The patient has taken no previous anticoagulant or antiplatelet agents. ASA Grade Assessment: I - A normal, healthy patient. After reviewing the risks and benefits, the patient was deemed in satisfactory condition to undergo the procedure. After obtaining informed consent, the endoscope was passed under direct vision. Throughout the procedure, the patient's blood pressure, pulse, and oxygen saturations were monitored continuously. The Endosonoscope was introduced through the mouth, and advanced to the second part of duodenum. The upper EUS was accomplished without difficulty. The patient tolerated the procedure well. Findings: Endoscopic Finding : The examined esophagus was normal. The entire examined stomach was normal. The examined duodenum was normal. Endosonographic Finding : The esophagus, stomach and duodenum and adjacent structures were visualized endosonographically. There was no sign of significant endosonographic abnormality in the esophagus. No pathologic lymphadenopathy was identified. Endosonographic images of the stomach were unremarkable. No pathologic lymphadenopathy, no masses and no wall thickening were identified. There was no sign of significant endosonographic abnormality in the examined duodenum. No pathologic lymphadenopathy was identified. Endosonographic imaging in the common bile duct showed no abnormalities. There was no sign of significant endosonographic abnormality in the visualized portion of the liver. Homogeneous parenchyma, no focal pathology and no pathologic lymphadenopathy were identified. There was no sign of significant endosonographic abnormality in the entire pancreas. The pancreatic duct measured up to 1 mm in diameter. No pathologic lymphadenopathy, no masses, the pancreatic duct was well visualized from ampulla to tail, the pancreatic duct was thin in caliber. No lymphadenopathy seen. A structure residing between the transducer and celiac trunk may represent the area in question on CT scan. This has a similar size and shape as the area described on CT. Spoke with radiology during the study and they concur that the the area i described is in a similar location and shape/size. By EUS this appears to be a portion of liver parenchyma that surrounds both sides of celiac trunk Impression: - Normal esophagus. - Normal stomach. - Normal examined duodenum. - There was no sign of significant pathology in the esophagus. - Endosonographic images of the stomach were unremarkable. - There was no sign of significant pathology in the examined duodenum. - There was no evidence of significant pathology in the visualized portion of the liver. - There was no sign of significant pathology in the entire pancreas. - No specimens collected. Recommendation: - Discharge patient to home (ambulatory). - Resume regular diet. - Continue present medications. - Return to GI clinic with Dr Matute as previously scheduled. - Perform magnetic resonance imaging (MRI) with gadolinium in 4 months to assess for persistence or to confirm liver parenchyma. Can perform earlier if symptoms persist or worsen. MD Gianluca Solorio MD 05/09/2017 12:16:53 PM This report has been signed electronically. Note Initiated On: 05/09/2017 10:37 AM I attest to the content of the Intraoperative Record and orders documented therein, exceptions below
[2017-05-09 12:25] VITALS: BP 110/58; PULSE 86; TEMP 37; O2SAT 100
[2017-05-09 12:55] VITALS: BP 102/54; PULSE 70; O2SAT 98
[2017-05-09 13:25] VITALS: BP 109/55; PULSE 83; TEMP 36.8; O2SAT 97
== END 2017-05-09 13:40 | disposition home or self-care (01) ==
LOC: C.ACU 07:39
PROVIDERS: ATTEND Internal Medicine Gastroenterology
DX: R10.9 Unspecified abdominal pain (principal); R93.5 Abnormal findings on diagnostic imaging of other abdominal regions, including retroperitoneum

== ENCOUNTER → 2017-06-16 | Outpatient (CLI) | payer BC ==
[~2017-06-16] MED LIST changes: -LACTATED RINGER'S 1000ML 1,000 ML IV SCH
--- NOTE | 2017-06-16 10:59 | DIAGNOSTIC IMAGING REPORT ---
ULTRASOUND RIGHT UPPER QUADRANT ABDOMEN CLINICAL HISTORY: Right upper quadrant abdominal pain. COMPARISON STUDY: Abdominal CT dated 04/15/2017. TECHNIQUE: Real-time, grayscale, and color flow sonography of the right upper quadrant of the abdomen was performed. Images are reviewed in the transverse and longitudinal planes. FINDINGS: Liver: The liver is normal in size and echotexture. There is no intrahepatic biliary ductal dilatation. The main portal vein is patent. Gallbladder: The gallbladder is normal in appearance. No gallstones are identified. There is no gallbladder wall thickening or pericholecystic fluid. A sonographic Dodson's sign is reportedly absent. The common bile duct measures up to 0.2 cm in diameter. Pancreas: Visualized portions of the pancreatic head and body are normal in appearance. The splenic vein is patent. Right kidney: Survey images of the right kidney demonstrate normal size and echotexture. There is no hydronephrosis. Ascites: None. IMPRESSION: Unremarkable sonographic assessment of the right upper quadrant. No gallstones are identified. Electronically signed by: Calixto Hanna M.D. 06/16/2017 10:58 AM Dictated Date/Time: 06/16/2017 10:57 AM
== END | disposition home or self-care (01) ==
LOC: C.ULTR 10:14
PROVIDERS: ATTEND Internal Medicine Gastroenterology
DX: R10.9 Unspecified abdominal pain (principal)

== ENCOUNTER → 2017-06-26 | Outpatient (CLI) | payer BC ==
[~2017-06-26] MED LIST changes: +SINCALIDE INJ 1.6 MCG in SODIUM CHLORIDE 0.9% 100ML 100 ML IV SCH
--- NOTE | 2017-06-26 15:30 | DIAGNOSTIC IMAGING REPORT ---
HEPATOBILIARY EF IMAGING CLINICAL HISTORY: 22 years-old Female with ABD PAIN, NAUSEA. Acute generalized abdominal pain with nausea TECHNIQUE: Following the intravenous administration of 5.1 mCi of technetium-99m Choletec, sequential abdominal images were obtained. In order to evaluate the contractile response of the gallbladder, 1.6 mcg of Kinevac was administered by slow intravenous infusion over 30 min starting approximately 60 min after the administration of the radiopharmaceutical. Sequential imaging was continued for 45 minutes after the start of the Kinevac infusion. COMPARISON: Abdominal ultrasound 06/16/2017 FINDINGS: There is prompt, uniform accumulation of the tracer by the liver. There is normal filling of the intrahepatic ducts, common bile duct and gallbladder and normal excretion of the tracer into the duodenum. There is adequate contraction of the gallbladder. The calculated gallbladder ejection fraction is 83% (normal >40%). There is moderate enterogastric reflux. IMPRESSION: 1. Normal contractile response of the gallbladder to Kinevac infusion. 2. Moderate enterogastric reflux. The above report was generated using voice recognition software. It may contain grammatical, syntax or spelling errors. Electronically signed by: Andrez Giles M.D. 06/26/2017 3:29 PM Dictated Date/Time: 06/26/2017 3:26 PM
== END | disposition home or self-care (01) ==
LOC: C.NUCL 12:45
PROVIDERS: ATTEND Internal Medicine Gastroenterology
DX: R10.9 Unspecified abdominal pain (principal); R11.0 Nausea

== ENCOUNTER 2023-10-28 07:40 | Inpatient (IN) ==
[2023-10-28] MEDS ORDERED: OXYTOCIN 30 UNITS/NSS 30 UNITS/500 ML BAG IV PRN (09:20)
[2023-10-28] MEDS ORDERED: LIDOCAINE 1% LOCAL 20 ML VIAL INFIL PRN (09:20)
--- NOTE | 2023-10-28 09:20 | Obstetrical Progress Note ---
Date of Service October 28, 2023 Assessment & Plan (1) , post-term: Plan: Pt doing well Reviewed PNC Bedside sono; VT VE ft/505/mid Cytotec #1 Admission and Anticipated Discharge Date Admission Date: October 28, 2023 Results & Data Vital Signs (Past 12 Hours) Vital Signs Temp Pulse Resp BP 10/28/23 08:09 36.8 C 56 L 20 116/69
[2023-10-28] MEDS: miSOPROStoL 50 MCG TAB PO ONE (09:37)
[2023-10-28 09:56] LABS: Hematocrit (blood only) 36.9 % (37.0-47.0); Hemoglobin 12.3 g/dl (12.0-16.0); Mean Corpuscular Hemoglobin 31.1 pg (25.0-34.0); Mean Corpuscular Hgb Conc 33.3 g/dL (32.0-36.0); Mean Corpuscular Volume 93.2 fL (80.0-100.0); Mean Platelet Volume 10.3 fL (9.4-12.4); Platelet Count 332 K/uL (130-400); RDW Coefficient of Variation 13.7 % (11.5-14.5); RDW Standard Deviation 47.3 fL (36.4-46.3); Red Blood Count 3.96 M/uL (4.20-5.40); White Blood Count 14.06 K/ul (4.8-10.8)
[2023-10-28] MEDS ORDERED: Nursing to Pharmacy Communication SCH (14:30)
[2023-10-28] MEDS: miSOPROStoL 50 MCG TAB PO SCH (14:34)
--- NOTE | 2023-10-28 18:59 | Obstetrical Progress Note ---
Date of Service October 28, 2023 Assessment & Plan (1) , post-term: Plan: Pt doing well FHR; CAT1 CtX; Irregular Received 2 doses of Cytotec VE; Ft/75%/Mid Plan Dinner Cervidil Admission and Anticipated Discharge Date Admission Date: October 28, 2023 Results & Data Vital Signs (Past 12 Hours) Vital Signs Temp Pulse Resp BP 10/28/23 14:34 20 10/28/23 14:34 36.6 C 20 10/28/23 14:34 51 L 10/28/23 14:34 117/58 L 10/28/23 10:48 18 10/28/23 10:48 36.8 C 18 10/28/23 10:48 50 L 10/28/23 10:48 111/65 10/28/23 08:09 36.8 C 56 L 20 116/69
[2023-10-28] MEDS: DINOPROSTONE 10 MG INSERT PV ONE (21:22)
--- NOTE | 2023-10-29 10:41 | Labor Progress Brief Note ---
Date of Service October 29, 2023 Assessment & Plan Admission and Anticipated Discharge Date Admission Date: October 28, 2023 Physical Exam Genitourinary: Manual OB Exam: + cervical dilation 1 cm and 2 cm, + cervical effacement 80% and + station -2 OB Exam Monitor Tracing: + external FHT monitor used, + external uterine monitor used, + category I and + normal FHT variability Will start Oxytocin to start induction of labor EFW 8 lbs. Results & Data Vital Signs (Past 12 Hours) Vital Signs Temp Pulse Resp BP 10/29/23 07:01 60 92/49 L 10/29/23 05:03 57 L 91/50 L 10/29/23 05:02 18 10/29/23 05:02 37.0 C 18 10/28/23 23:37 18 10/28/23 23:37 37.0 C 18 10/28/23 23:36 59 L 10/28/23 23:36 100/55 L
[2023-10-29] MEDS: LACTATED RINGER'S 1,000 ML IV PRN (11:17)
[2023-10-29] MEDS: OXYTOCIN 30 UNITS/NSS 30 UNITS/500 ML BAG IV PRN (11:17)
[2023-10-29] MEDS: ONDANSETRON INJ 2 MG/ML 2 ML VIAL IV PRN (11:25)
--- NOTE | 2023-10-29 13:01 | Anesthesiology Consultation ---
Date of Service October 29, 2023 Assessment & Plan Chart Review Chart Review: Acceptable Risk for Surgery and Patient NOT seen in Pre Admission Testing Consults Requested none ASA ASA2 Proposed Anesthesia Anesthesia Type: Labor Epidural Risk / Benefits Reviewed With: PT / POA / Parent / Guardian, Accepts Plan and Informed Consent Obtained History Height/Weight Height: 5 ft 5 in Weight: 99.159 kg Allergies Allergy/AdvReac Type Severity Reaction Status Date / Time clarithromycin Allergy Mild Rash Verified 10/28/23 21:13 Medications Home Medications Medication Instructions Recorded Confirmed Last Taken vit no.95-ferrous 1 tab PO DAILY 10/08/23 10/28/23 10/27/23 19:00 fumarate 28 mg-folic acid 800 mcg tablet () sertraline 50 mg tablet 50 mg PO DAILY 10/08/23 10/28/23 10/27/23 13:00 Active Medications Generic Name Dose Route Start Last Admin Trade Name Freq PRN Reason Stop Dose Admin Lactated Ringer's 1,000 mls @ 125 mls/hr 10/28/23 09:20 10/29/23 13:13 Lr IV 10/30/23 09:19 125 mls/hr .Q8H PRN Administration L&D Protocol Protocol Oxytocin 30 units in 500 mls @ 3 mls/hr 10/29/23 10:41 10/29/23 12:00 Pitocin 30 Units/Nss IV 10/31/23 10:40 0.18 units/hr .Q24H PRN 3 mls/hr Labor Induction/Augmentation Titration Protocol 0.18 UNITS/HR Ondansetron HCl 4 mg 10/29/23 11:21 10/29/23 11:25 Ondansetron Inj 2 Mg/Ml 2 Ml Vial IV 11/28/23 11:20 4 mg Q4H PRN Administration Nausea NPO Date Last Intake of Fluids: 10/29/23 Time Last Intake of Fluids: 12:00 Date Last Intake of Solids: 10/29/23 Time Last Intake of Solids: 08:00 Past Medical History Medical History PDA (patent ductus arteriosus) repaired -1993 Exercise / Class Metabolic Activity 1 > 8 Run/Swim/Ski/Tennis Past Surgical History Surgical History [place] teeth removed 2012 Hx of cataract removal with insertion of prosthetic lens age 5 and 7 Past Anesthesia History No Hx of Anesthesia Complications and No Family Hx of Anesthesia Complications History of PONV No Hx of Motion Sickness and History of PONV Social History Smoking Status: Current every day smoker Smoking cigarettes per day: 2 Do You Dip or Chew Tobacco: No Hx Alcohol Use: No Hx Substance Use: Yes substance use type: marijuana Substance Use Type Other:: has medical marijuana card for anxiety- stopped in july Last Used Substance Other:: medical marijuana last used in August Review of Systems ROS Unobtainable: All systems reviewed & are unremarkable except as noted in HPI & below Physical Exam Vital Signs Last Vital Signs Temp 37.6 C H 10/29/23 11:04 Pulse 53 L 10/29/23 12:52 Resp 18 10/29/23 11:04 BP 118/55 L 10/29/23 12:26 Pulse Ox 100 10/29/23 12:52 ENMT Mouth: no TMJ abnormality Thyromental Distance: > or= 3.5 Finger Breadths Mallampati Class: II Neck normal visual inspection and trachea midline; neck extension not limited Respiratory normal respiratory effort Auscultation: lungs clear to auscultation bilaterally Cardiovascular Rate/Rhythm: regular rate and regular rhythm Heart Sounds: no murmur Musculoskeletal Spine: normal cervical ROM Extremities: full ROM of extremities Neurologic moves all extremities Psychiatric Orientation: alert and oriented x 3 Testing Laboratory Results 10/28/23 09:34 Blood Type B Positive 10/28/23 09:34 Antibody Screen NEGATIVE 10/28/23 09:34
[2023-10-29] MEDS: BUPIVACAINE 0.25% PF 30 ML VIAL ONE (13:20)
[2023-10-29] MEDS: SODIUM CHLORIDE 0.9% PF INJ 10 ML VIAL ONE (13:20)
[2023-10-29] MEDS: LIDOCAINE 2%/EPINEPHRINE 1:200,000 20 ML PF ONE (13:20)
[2023-10-29] MEDS ORDERED: NALOXONE HCL 0.4 MG/1 ML VIAL/CARP IV PRN (13:26)
[2023-10-29] MEDS ORDERED: NALBUPHINE HCL 5 MG in SYRINGE 0 ML IV PRN (13:26)
[2023-10-29] MEDS ORDERED: ROPIVACAINE 0.5% PF 5 MG/ML 20 ML VIAL EPI PRN (13:26)
[2023-10-29] MEDS ORDERED: SODIUM CHLORIDE 0.9% PF INJ 10 ML VIAL EPI PRN (13:26)
[2023-10-29] MEDS ORDERED: ePHEDrine sulfate 50 MG/ML AMP IV PRN (13:26)
[2023-10-29] MEDS ORDERED: fentaNYL citrate PF 100 MCG/2 ML VIAL EPI PRN (13:26)
[2023-10-29] MEDS ORDERED: NALOXONE HCL 1 MG in SODIUM CHLORIDE 0.9% 1,000 ML IV PRN (13:26)
[2023-10-29] MEDS ORDERED: BUPIVACAINE 0.25% PF 30 ML VIAL EPI PRN (13:26)
[2023-10-29] MEDS ORDERED: diphenhydrAMINE 50 MG/ML VIAL IV PRN (13:26)
[2023-10-29] MEDS ORDERED: LIDOCAINE 2% MPF LOCAL 5 ML VIAL EPI PRN (13:26)
[2023-10-29] MEDS: fentANYL 2 MCG/ML BUPIVacaine 0.125%-NSS 100ML BAG ONE (13:28)
[2023-10-29] MEDS: ePHEDrine sulfate 50 MG/ML AMP ONE (13:30)
[2023-10-29] MEDS: fentaNYL citrate PF 100 MCG/2 ML VIAL ONE (13:31)
[2023-10-29] MEDS: LIDOCAINE 2%/EPINEPHRINE 1:200,000 20 ML PF EPI STA (14:05)
[2023-10-29] MEDS: fentaNYL citrate PF 100 MCG/2 ML VIAL EPI STA (14:05)
[2023-10-29] MEDS: BUPIVACAINE 0.25% PF 30 ML VIAL EPI STA (14:05)
[2023-10-29] MEDS: SODIUM CHLORIDE 0.9% PF INJ 10 ML VIAL EPI STA (14:06)
--- NOTE | 2023-10-29 14:32 | Labor Progress Brief Note ---
Date of Service October 29, 2023 Assessment & Plan Admission and Anticipated Discharge Date Admission Date: October 28, 2023 Physical Exam Genitourinary: Manual OB Exam: + cervical dilation 2 cm, + cervical effacement 80%, + station -2 and + amniotic fluid clear OB Exam Monitor Tracing: + external FHT monitor used, + external uterine monitor used, + category I and + normal FHT variability AROM with Amni-hook clear fluid Results & Data Vital Signs (Past 12 Hours) Vital Signs Temp Pulse Resp BP Pulse Ox 10/29/23 14:30 60 102/65 10/29/23 14:27 71 99 10/29/23 14:25 59 L 109/65 10/29/23 14:22 65 97 10/29/23 14:20 81 100/59 L 10/29/23 14:17 78 96 10/29/23 14:14 62 93/51 L 10/29/23 14:12 61 96 10/29/23 14:10 56 L 102/55 L 10/29/23 14:07 62 96 10/29/23 14:05 67 102/57 L 10/29/23 14:02 65 97 10/29/23 14:00 64 115/61 10/29/23 13:57 65 98 10/29/23 13:55 71 108/59 L 10/29/23 13:52 66 99 10/29/23 13:50 65 125/58 L 10/29/23 13:47 62 100 10/29/23 13:46 61 92/55 L 10/29/23 13:42 62 99 10/29/23 13:40 80 115/57 L 10/29/23 13:37 68 99 10/29/23 13:35 68 109/58 L 10/29/23 13:34 67 104/51 L 10/29/23 13:32 98 10/29/23 13:32 70 10/29/23 13:32 67 95/52 L 10/29/23 13:30 98/52 L 10/29/23 13:28 66 93/55 L 10/29/23 13:27 68 99 10/29/23 13:26 63 92/55 L 10/29/23 13:24 61 87/50 L 10/29/23 13:22 98 10/29/23 13:22 70 10/29/23 13:22 76/47 L 10/29/23 13:22 55 L 87/43 L 10/29/23 13:21 51 L 89/50 L 10/29/23 13:20 54 L 89/49 L 10/29/23 13:17 65 100 10/29/23 13:12 56 L 99 10/29/23 13:07 61 100 10/29/23 13:02 71 98 10/29/23 12:57 60 100 10/29/23 12:52 53 L 100 10/29/23 12:26 81 118/55 L 10/29/23 11:16 57 L 113/74 10/29/23 11:06 55 L 112/70 10/29/23 11:04 18 10/29/23 11:04 37.6 C H 18 10/29/23 07:01 60 92/49 L 10/29/23 05:03 57 L 91/50 L 10/29/23 05:02 18 10/29/23 05:02 37.0 C 18
--- NOTE | 2023-10-29 15:32 | Labor Progress Brief Note ---
Date of Service October 29, 2023 Assessment & Plan Admission and Anticipated Discharge Date Admission Date: October 28, 2023 Physical Exam Genitourinary: Manual OB Exam: + cervical dilation 4 cm and 5 cm, + cervical effacement 90%, + station and + amniotic fluid clear OB Exam Monitor Tracing: + scalp electrode used, + category II, + normal FHT variability and + variable decelerations scalp electrode placed to monitor patient Results & Data Vital Signs (Past 12 Hours) Vital Signs Temp Pulse Resp BP Pulse Ox 10/29/23 15:27 62 98 10/29/23 15:22 67 98 10/29/23 15:21 70 109/63 10/29/23 15:17 63 98 10/29/23 15:12 63 98 10/29/23 15:07 68 97 10/29/23 15:02 58 L 98 10/29/23 15:00 59 L 116/56 L 10/29/23 14:57 61 97 10/29/23 14:55 58 L 100/55 L 10/29/23 14:52 66 96 10/29/23 14:50 60 100/55 L 10/29/23 14:47 62 97 10/29/23 14:46 58 L 98/66 L 10/29/23 14:42 62 96 10/29/23 14:40 61 105/54 L 10/29/23 14:37 61 96 10/29/23 14:35 63 95/57 L 10/29/23 14:32 63 97 10/29/23 14:30 20 10/29/23 14:30 60 102/65 10/29/23 14:27 71 99 10/29/23 14:25 59 L 109/65 10/29/23 14:22 65 97 10/29/23 14:20 81 100/59 L 10/29/23 14:17 78 96 10/29/23 14:15 20 10/29/23 14:14 62 93/51 L 10/29/23 14:12 61 96 10/29/23 14:10 56 L 102/55 L 10/29/23 14:07 62 96 10/29/23 14:05 67 102/57 L 10/29/23 14:02 65 97 10/29/23 14:00 20 10/29/23 14:00 64 115/61 10/29/23 13:57 65 98 10/29/23 13:55 71 108/59 L 10/29/23 13:52 66 99 10/29/23 13:50 65 125/58 L 10/29/23 13:47 62 100 10/29/23 13:46 61 92/55 L 10/29/23 13:45 18 10/29/23 13:42 62 99 10/29/23 13:40 80 115/57 L 10/29/23 13:37 68 99 10/29/23 13:35 68 109/58 L 10/29/23 13:34 67 104/51 L 10/29/23 13:32 98 10/29/23 13:32 70 10/29/23 13:32 67 95/52 L 10/29/23 13:30 20 10/29/23 13:30 98/52 L 10/29/23 13:28 66 93/55 L 10/29/23 13:27 68 99 10/29/23 13:26 63 92/55 L 10/29/23 13:24 61 87/50 L 10/29/23 13:22 98 10/29/23 13:22 70 10/29/23 13:22 76/47 L 10/29/23 13:22 55 L 87/43 L 10/29/23 13:21 51 L 89/50 L 10/29/23 13:20 54 L 89/49 L 10/29/23 13:17 65 100 10/29/23 13:12 56 L 99 10/29/23 13:07 61 100 10/29/23 13:02 71 98 10/29/23 12:57 60 100 10/29/23 12:52 53 L 100 10/29/23 12:26 81 118/55 L 10/29/23 11:16 57 L 113/74 10/29/23 11:06 55 L 112/70 10/29/23 11:04 18 10/29/23 11:04 37.6 C H 18 10/29/23 07:01 60 92/49 L 10/29/23 05:03 57 L 91/50 L 10/29/23 05:02 18 10/29/23 05:02 37.0 C 18
[2023-10-29] MEDS: fentANYL 2 MCG/ML BUPIVacaine 0.125%-NSS 100ML BAG EPI PRN (20:50)
--- NOTE | 2023-10-29 20:50 | Labor Progress Brief Note ---
Date of Service October 29, 2023 Assessment & Plan Admission and Anticipated Discharge Date Admission Date: October 28, 2023 Physical Exam Genitourinary: Manual OB Exam: + cervical dilation (small caput noted) 5 cm and 6 cm, + cervical effacement 90%, + station -1 and + amniotic fluid clear OB Exam Monitor Tracing: + scalp electrode used, + external uterine monitor used and + normal FHT variability Results & Data Vital Signs (Past 12 Hours) Vital Signs Temp Pulse Resp BP Pulse Ox 10/29/23 20:47 68 99 10/29/23 20:44 76 87 L 10/29/23 20:42 70 99 10/29/23 20:37 64 99 10/29/23 20:36 58 L 117/65 10/29/23 20:32 60 99 10/29/23 20:30 20 10/29/23 20:30 20 10/29/23 20:27 70 99 10/29/23 20:22 65 99 10/29/23 20:20 62 109/66 10/29/23 20:17 69 99 10/29/23 20:12 64 98 10/29/23 20:07 81 98 10/29/23 20:02 59 L 96 10/29/23 19:57 60 96 10/29/23 19:52 63 96 10/29/23 19:50 57 L 102/50 L 10/29/23 19:47 59 L 95 10/29/23 19:42 64 95 10/29/23 19:37 60 95 10/29/23 19:35 63 98/52 L 10/29/23 19:32 61 95 10/29/23 19:30 18 10/29/23 19:30 18 10/29/23 19:27 62 95 10/29/23 19:22 61 95 10/29/23 19:20 56 L 113/59 L 10/29/23 19:17 60 95 10/29/23 19:15 37.0 C 10/29/23 19:12 66 98 10/29/23 19:07 65 96 10/29/23 19:06 63 112/56 L 10/29/23 19:02 65 95 10/29/23 18:57 62 94 10/29/23 18:56 59 L 94 10/29/23 18:52 61 95 10/29/23 18:51 60 111/57 L 10/29/23 18:47 63 95 10/29/23 18:43 63 94 10/29/23 18:42 62 95 10/29/23 18:37 64 95 10/29/23 18:35 59 L 120/56 L 10/29/23 18:32 65 96 10/29/23 18:30 20 10/29/23 18:30 20 10/29/23 18:27 65 96 10/29/23 18:22 64 95 10/29/23 18:17 65 97 10/29/23 18:12 62 97 10/29/23 18:07 64 99 10/29/23 18:05 63 104/59 L 10/29/23 18:02 71 98 10/29/23 18:00 18 10/29/23 17:57 71 98 10/29/23 17:52 77 98 10/29/23 17:50 65 114/64 10/29/23 17:47 79 99 10/29/23 17:42 74 99 10/29/23 17:37 69 97 10/29/23 17:35 63 114/65 10/29/23 17:32 76 99 10/29/23 17:30 18 10/29/23 17:30 18 10/29/23 17:27 71 98 10/29/23 17:22 67 99 10/29/23 17:20 63 109/56 L 10/29/23 17:17 70 98 10/29/23 17:12 76 99 10/29/23 17:07 72 98 10/29/23 17:06 70 112/55 L 10/29/23 17:02 66 99 10/29/23 17:00 37.3 C 10/29/23 17:00 18 10/29/23 17:00 18 10/29/23 16:57 80 99 10/29/23 16:52 76 98 10/29/23 16:51 62 111/58 L 10/29/23 16:47 61 97 10/29/23 16:42 73 98 10/29/23 16:37 67 97 10/29/23 16:36 69 109/65 10/29/23 16:32 73 98 10/29/23 16:30 20 10/29/23 16:30 20 10/29/23 16:27 78 99 10/29/23 16:22 62 98 10/29/23 16:17 65 98 10/29/23 16:12 62 98 10/29/23 16:07 66 99 10/29/23 16:02 74 100 10/29/23 16:00 18 10/29/23 16:00 18 10/29/23 15:57 67 99 10/29/23 15:52 74 99 10/29/23 15:50 86 115/69 10/29/23 15:47 69 99 10/29/23 15:46 57 L 120/63 10/29/23 15:42 61 98 10/29/23 15:37 64 99 10/29/23 15:32 65 97 10/29/23 15:30 20 10/29/23 15:30 20 10/29/23 15:27 62 98 10/29/23 15:22 67 98 10/29/23 15:21 70 109/63 10/29/23 15:17 63 98 10/29/23 15:12 63 98 10/29/23 15:07 68 97 10/29/23 15:02 58 L 98 10/29/23 15:00 36.8 C 59 L 20 116/56 L 10/29/23 14:57 61 97 10/29/23 14:55 58 L 100/55 L 10/29/23 14:52 66 96 10/29/23 14:50 60 100/55 L 10/29/23 14:47 62 97 10/29/23 14:46 58 L 98/66 L 10/29/23 14:42 62 96 10/29/23 14:40 61 105/54 L 10/29/23 14:37 61 96 10/29/23 14:35 63 95/57 L 10/29/23 14:32 63 97 10/29/23 14:30 20 10/29/23 14:30 60 102/65 10/29/23 14:27 71 99 10/29/23 14:25 59 L 109/65 10/29/23 14:22 65 97 10/29/23 14:20 81 100/59 L 10/29/23 14:17 78 96 10/29/23 14:15 20 10/29/23 14:14 62 93/51 L 10/29/23 14:12 61 96 10/29/23 14:10 56 L 102/55 L 10/29/23 14:07 62 96 10/29/23 14:05 67 102/57 L 10/29/23 14:02 65 97 10/29/23 14:00 20 10/29/23 14:00 64 115/61 10/29/23 13:57 65 98 10/29/23 13:55 71 108/59 L 10/29/23 13:52 66 99 10/29/23 13:50 65 125/58 L 10/29/23 13:47 62 100 10/29/23 13:46 61 92/55 L 10/29/23 13:45 18 10/29/23 13:42 62 99 10/29/23 13:40 80 115/57 L 10/29/23 13:37 68 99 10/29/23 13:35 68 109/58 L 10/29/23 13:34 67 104/51 L 10/29/23 13:32 98 10/29/23 13:32 70 10/29/23 13:32 67 95/52 L 10/29/23 13:30 20 10/29/23 13:30 98/52 L 10/29/23 13:28 66 93/55 L 10/29/23 13:27 68 99 10/29/23 13:26 63 92/55 L 10/29/23 13:24 61 87/50 L 10/29/23 13:22 98 10/29/23 13:22 70 10/29/23 13:22 76/47 L 10/29/23 13:22 55 L 87/43 L 10/29/23 13:21 51 L 89/50 L 10/29/23 13:20 54 L 89/49 L 10/29/23 13:17 65 100 10/29/23 13:12 56 L 99 10/29/23 13:07 61 100 10/29/23 13:02 71 98 10/29/23 12:57 60 100 10/29/23 12:52 53 L 100 10/29/23 12:26 81 118/55 L 10/29/23 11:16 57 L 113/74 10/29/23 11:06 55 L 112/70 10/29/23 11:04 18 10/29/23 11:04 37.6 C H 18
--- NOTE | 2023-10-30 01:57 | Labor Progress Brief Note ---
Date of Service October 30, 2023 Assessment & Plan Admission and Anticipated Discharge Date Admission Date: October 28, 2023 Physical Exam Genitourinary: Manual OB Exam: + cervical dilation 9 cm, + cervical effacement 100%, + station 0 and + amniotic fluid clear OB Exam Monitor Tracing: + scalp electrode used, + category I and + normal FHT variability Results & Data Vital Signs (Past 12 Hours) Vital Signs Temp Pulse Resp BP Pulse Ox 10/30/23 01:52 62 97 10/30/23 01:50 60 124/60 10/30/23 01:47 60 99 10/30/23 01:42 76 100 10/30/23 01:37 62 98 10/30/23 01:36 61 135/76 10/30/23 01:32 68 99 10/30/23 01:27 59 L 99 10/30/23 01:22 96 10/30/23 01:22 60 10/30/23 01:22 57 L 177/112 H 10/30/23 01:17 66 97 10/30/23 01:12 62 100 10/30/23 01:11 74 89 L 10/30/23 01:07 99 10/30/23 01:07 61 10/30/23 01:07 74 118/74 10/30/23 01:02 65 100 10/30/23 01:01 70 87 L 10/30/23 01:00 36.9 C 10/30/23 00:57 73 100 10/30/23 00:52 60 100 10/30/23 00:51 64 131/84 10/30/23 00:47 70 99 10/30/23 00:42 68 100 10/30/23 00:37 71 98 10/30/23 00:35 61 130/82 10/30/23 00:32 61 98 10/30/23 00:27 62 98 10/30/23 00:22 65 100 10/30/23 00:21 71 134/81 10/30/23 00:17 64 100 10/30/23 00:12 67 100 10/30/23 00:07 67 99 10/30/23 00:06 65 126/77 10/30/23 00:02 74 100 10/30/23 00:00 16 10/30/23 00:00 16 10/29/23 23:57 70 98 10/29/23 23:52 72 98 10/29/23 23:51 73 128/79 10/29/23 23:47 60 97 10/29/23 23:42 58 L 98 10/29/23 23:37 58 L 99 10/29/23 23:35 64 141/80 H 10/29/23 23:32 69 100 10/29/23 23:27 74 100 10/29/23 23:22 68 116/75 100 10/29/23 23:17 63 98 10/29/23 23:12 65 100 10/29/23 23:07 76 98 10/29/23 23:06 61 107/57 L 10/29/23 23:02 59 L 97 10/29/23 23:00 18 10/29/23 23:00 37.2 C 18 10/29/23 22:57 60 98 10/29/23 22:52 71 95 10/29/23 22:51 55 L 108/53 L 10/29/23 22:47 60 96 10/29/23 22:42 63 96 10/29/23 22:37 96 10/29/23 22:37 60 10/29/23 22:37 58 L 106/54 L 10/29/23 22:32 60 96 10/29/23 22:30 18 10/29/23 22:30 18 10/29/23 22:27 61 96 10/29/23 22:22 61 96 10/29/23 22:21 61 114/53 L 10/29/23 22:17 63 98 10/29/23 22:12 62 96 10/29/23 22:07 59 L 98 10/29/23 22:05 61 112/58 L 10/29/23 22:02 61 99 10/29/23 22:00 18 10/29/23 22:00 18 10/29/23 21:57 66 100 10/29/23 21:52 67 100 10/29/23 21:50 57 L 133/71 10/29/23 21:47 71 99 10/29/23 21:42 64 98 10/29/23 21:37 61 99 10/29/23 21:35 63 121/65 10/29/23 21:32 63 99 10/29/23 21:27 63 98 10/29/23 21:22 67 99 10/29/23 21:21 71 132/71 10/29/23 21:17 68 99 10/29/23 21:15 37.2 C 10/29/23 21:12 68 99 10/29/23 21:07 65 100 10/29/23 21:05 79 119/73 10/29/23 21:02 66 99 10/29/23 20:57 64 100 10/29/23 20:52 63 99 10/29/23 20:51 68 119/66 10/29/23 20:47 68 99 10/29/23 20:44 76 87 L 10/29/23 20:42 70 99 10/29/23 20:37 64 99 10/29/23 20:36 58 L 117/65 10/29/23 20:32 60 99 10/29/23 20:30 20 10/29/23 20:30 20 10/29/23 20:27 70 99 10/29/23 20:22 65 99 10/29/23 20:20 62 109/66 10/29/23 20:17 69 99 10/29/23 20:12 64 98 10/29/23 20:07 81 98 10/29/23 20:02 59 L 96 10/29/23 19:57 60 96 10/29/23 19:52 63 96 10/29/23 19:50 57 L 102/50 L 10/29/23 19:47 59 L 95 10/29/23 19:42 64 95 10/29/23 19:37 60 95 10/29/23 19:35 63 98/52 L 10/29/23 19:32 61 95 10/29/23 19:30 18 10/29/23 19:30 18 10/29/23 19:27 62 95 10/29/23 19:22 61 95 10/29/23 19:20 56 L 113/59 L 10/29/23 19:17 60 95 10/29/23 19:15 37.0 C 10/29/23 19:12 66 98 10/29/23 19:07 65 96 10/29/23 19:06 63 112/56 L 10/29/23 19:02 65 95 10/29/23 18:57 62 94 10/29/23 18:56 59 L 94 10/29/23 18:52 61 95 10/29/23 18:51 60 111/57 L 10/29/23 18:47 63 95 10/29/23 18:43 63 94 10/29/23 18:42 62 95 10/29/23 18:37 64 95 10/29/23 18:35 59 L 120/56 L 10/29/23 18:32 65 96 10/29/23 18:30 20 10/29/23 18:30 20 10/29/23 18:27 65 96 10/29/23 18:22 64 95 10/29/23 18:17 65 97 10/29/23 18:12 62 97 10/29/23 18:07 64 99 10/29/23 18:05 63 104/59 L 10/29/23 18:02 71 98 10/29/23 18:00 18 10/29/23 17:57 71 98 10/29/23 17:52 77 98 10/29/23 17:50 65 114/64 10/29/23 17:47 79 99 10/29/23 17:42 74 99 10/29/23 17:37 69 97 10/29/23 17:35 63 114/65 10/29/23 17:32 76 99 10/29/23 17:30 18 10/29/23 17:30 18 10/29/23 17:27 71 98 10/29/23 17:22 67 99 10/29/23 17:20 63 109/56 L 10/29/23 17:17 70 98 10/29/23 17:12 76 99 10/29/23 17:07 72 98 10/29/23 17:06 70 112/55 L 10/29/23 17:02 66 99 10/29/23 17:00 37.3 C 10/29/23 17:00 18 10/29/23 17:00 18 10/29/23 16:57 80 99 10/29/23 16:52 76 98 10/29/23 16:51 62 111/58 L 10/29/23 16:47 61 97 10/29/23 16:42 73 98 10/29/23 16:37 67 97 10/29/23 16:36 69 109/65 10/29/23 16:32 73 98 10/29/23 16:30 20 10/29/23 16:30 20 10/29/23 16:27 78 99 10/29/23 16:22 62 98 10/29/23 16:17 65 98 10/29/23 16:12 62 98 10/29/23 16:07 66 99 10/29/23 16:02 74 100 10/29/23 16:00 18 10/29/23 16:00 18 10/29/23 15:57 67 99 10/29/23 15:52 74 99 10/29/23 15:50 86 115/69 10/29/23 15:47 69 99 10/29/23 15:46 57 L 120/63 10/29/23 15:42 61 98 10/29/23 15:37 64 99 10/29/23 15:32 65 97 10/29/23 15:30 20 10/29/23 15:30 20 10/29/23 15:27 62 98 10/29/23 15:22 67 98 10/29/23 15:21 70 109/63 10/29/23 15:17 63 98 10/29/23 15:12 63 98 10/29/23 15:07 68 97 10/29/23 15:02 58 L 98 10/29/23 15:00 36.8 C 59 L 20 116/56 L 10/29/23 14:57 61 97 10/29/23 14:55 58 L 100/55 L 10/29/23 14:52 66 96 10/29/23 14:50 60 100/55 L 10/29/23 14:47 62 97 10/29/23 14:46 58 L 98/66 L 10/29/23 14:42 62 96 10/29/23 14:40 61 105/54 L 10/29/23 14:37 61 96 10/29/23 14:35 63 95/57 L 10/29/23 14:32 63 97 10/29/23 14:30 20 10/29/23 14:30 60 102/65 10/29/23 14:27 71 99 10/29/23 14:25 59 L 109/65 10/29/23 14:22 65 97 10/29/23 14:20 81 100/59 L 10/29/23 14:17 78 96 10/29/23 14:15 20 10/29/23 14:14 62 93/51 L 10/29/23 14:12 61 96 06/12/24 14:10 56 L 102/55 L 10/29/23 14:07 62 96 10/29/23 14:05 67 102/57 L 10/29/23 14:02 65 97 10/29/23 14:00 20 10/29/23 14:00 64 115/61 10/29/23 13:57 65 98
--- NOTE | 2023-10-30 04:20 | Delivery Summary ---
Vaginal Delivery Summary Date of Service October 30, 2023 Vaginal Delivery Summary live female GET over intact perineum with nuchal cord x1 reduced at delivery. Apgars 8/9 weight pending. Cord blood obtained followed by spontaneous delivery of intact placenta with 3VC. Small left labia minora abrasion upper portion not repaired as it was not bleeding. QBL 520 ml. Final sponge and instrument count are correct. Mom and baby stable.
[2023-10-30] MEDS ORDERED: OXYTOCIN 30 UNITS/NSS 30 UNITS/500 ML BAG IV PRN (05:06)
[2023-10-30] MEDS ORDERED: DIPHTHER/TETAN/PERTUS Vaccine (Tdap, Adol/Adult) 0.5mL IM ONE (05:06)
[2023-10-30] MEDS ORDERED: HYDROCORTISONE ACETATE 25 MG SUPP PR PRN (05:06)
[2023-10-30] MEDS ORDERED: ACETAMINOPHEN 325 MG TAB PO PRN (05:06)
[2023-10-30] MEDS ORDERED: SODIUM CHLORIDE 0.9% 250 ML IV PRN (06:49)
[2023-10-30] MEDS ORDERED: PRENATAL VITAMIN 1 TAB PO SCH (08:00)
[2023-10-30] MEDS: FERROUS SULFATE 325 MG TAB PO SCH (08:21)
[2023-10-30] MEDS: DOCUSATE SODIUM 100 MG CAP PO SCH (08:21)
[2023-10-30] MEDS: PRENATAL VITAMIN 1 TAB PO SCH (08:22)
--- NOTE | 2023-10-30 09:34 | Anesthesia Procedure Note ---
Date of Service October 30, 2023 Anesthesia Post Epidural Note Vital Signs Vital Signs: Temp Pulse Resp BP Pulse Ox O2 Del Method 37.6 C H 71 14 111/67 97 Room Air 10/30/23 07:35 10/30/23 07:35 10/30/23 07:35 10/30/23 07:35 10/30/23 07:35 10/30/23 07:35 Pain Intensity Abdomen: Pain Intensity: 8 Notes Mental Status: alert / awake / arousable Nausea / Vomiting: adequately controlled Pain: adequately controlled Airway Patency, RR, SpO2: stable & adequate BP & HR: stable & adequate Hydration State: stable & adequate Neuraxial Anesthesia: was administered and sensory block is resolving Anesthetic Complications: no major complications apparent Epidural: Removed without complications and With tip intact
[2023-10-30] MEDS: SERTRALINE HCL 50 MG TABLET PO SCH (10:06)
[2023-10-30] MEDS: IBUPROFEN 600 MG TAB PO PRN (11:57)
[2023-10-30] MEDS: BENZOCAINE 20% SPRY 85 APPLN/85 GM CAN EXT PRN (15:44)
[2023-10-31 06:35] LABS: Hematocrit (blood only) 27.5 % (37.0-47.0); Hemoglobin 9.3 g/dl (12.0-16.0); Mean Corpuscular Hemoglobin 31.5 pg (25.0-34.0); Mean Corpuscular Hgb Conc 33.8 g/dL (32.0-36.0); Mean Corpuscular Volume 93.2 fL (80.0-100.0); Mean Platelet Volume 10.5 fL (9.4-12.4); Platelet Count 251 K/uL (130-400); RDW Standard Deviation 47.3 fL (36.4-46.3); Red Blood Count 2.95 M/uL (4.20-5.40); White Blood Count 22.32 K/ul (4.8-10.8)
--- NOTE | 2023-10-31 09:53 | Obstetrical Progress Note ---
Date of Service October 31, 2023 Subjective Ambulation: ambulating normally Voiding: no voiding problems Passing Gas:: Yes Diet Tolerance:: regular diet Feeding Type:: breast feeding Current Pain Level(1-10): 0 doing well. wants to go home later today. Physical Exam Constitutional WD/WN, vitals as above Gastrointestinal (Abdomen) Inspection/Auscultation: abdomen normal to inspection abdomen soft and non-tender. fundus firm below U Musculoskeletal Extremities: extremities normal to inspection Skin no rashes, warm and dry Neurologic patellar DTR's 2+ bilat, sensation intact Psychiatric A+Ox3, euthymic affect Results & Data Vital Signs (Past 12 Hours) Vital Signs Temp Pulse Resp BP Pulse Ox O2 Del Method 10/31/23 08:42 36.5 C 62 16 113/70 99 Room Air 10/30/23 23:16 36.9 C 58 L 16 104/63 Room Air Laboratory Results Laboratory Results - last 72 hr 10/28/23 10/31/23 09:34 05:59 WBC 14.06 H 22.32 H RBC 3.96 L 2.95 L Hgb 12.3 9.3 L Hct 36.9 L 27.5 L MCV 93.2 93.2 MCH 31.1 31.5 MCHC 33.3 33.8 RDW Std Deviation 47.3 H 47.3 H RDW Coeff of Natty 13.7 14.0 Plt Count 332 251 MPV 10.3 10.5 Blood Type B Positive Antibody Screen NEGATIVE
[2023-10-31] MEDS ORDERED: bisacodyL 5 MG TABEC PO SCH (20:00)
[2023-11-01] MEDS ORDERED: bisacodyL 10 MG SUPP PR PRN
== END 2023-10-31 15:00 | disposition home or self-care (01) | DRG 807 ==
LOC: 4S1 07:40 → 4E2 10-30 06:56